=== PATIENT | female | born 1955 | race Two or more races ===

== ENCOUNTER 2016-05-12 10:05 | Outpatient (CLI) | payer BC | END 2016-05-12 23:59 | disposition home or self-care (01) | LOC: MRI 10:05 | PROVIDERS: ATTEND Family Medicine | DX: S86.011A Strain of right Achilles tendon, initial encounter (principal); M77.8 Other enthesopathies, not elsewhere classified; X58.XXXA Exposure to other specified factors, initial encounter; Y93.89 Activity, other specified; Y92.89 Other specified places as the place of occurrence of the external cause; Y99.8 Other external cause status | CPT/HCPCS: 73718-TC ==